=== PATIENT | female | born 1985 | race Two or more races ===

== ENCOUNTER 2021-09-13 18:12 | Observation (INO) | payer MEDICAID ==
[~2021-09-13] VITALS: Ht 152.4 cm; Wt 79.4 kg
[2021-09-13] MEDS ORDERED: LACTATED RINGERS 1,000 ML IV SCH (19:15)
== END 2021-09-13 20:30 | disposition home or self-care (01) ==
LOC: 8 EST LDRP 18:12
PROVIDERS: ADMIT Obstetrics & Gynecology; ATTEND Specialist
DX: O26.893 Other specified pregnancy related conditions, third trimester (principal); R10.9 Unspecified abdominal pain; O62.9 Abnormality of forces of labor, unspecified; O48.0 Post-term pregnancy; Z3A.40 40 weeks gestation of pregnancy
CPT/HCPCS: 59025; G0378; 99281